=== PATIENT | male | born 1970 | race Caucasian/White ===

== ENCOUNTER 2019-09-17 08:49 | Emergency (ER) | payer OTHER ==
[2019-09-17] MEDS ORDERED: SODIUM CHLORIDE 1,000 ML IV STA (08:54)
[2019-09-17] MEDS ORDERED: KETOROLAC TROMETHAMINE 30 MG/1 ML VIAL IVPUSH ONE (08:54)
--- NOTE | 2019-09-17 08:54 | PDOC ---
Rapid Medical Evaluation Time Seen by Provider: 09/17/19 08:50 Medical Evaluation: Allergies Allergy/AdvReac Type Severity Reaction Status Date / Time No Known Allergies Allergy Unverified 07/10/12 12:04 09/17/19 08:53 CC: sudden onset of left flank pain 45 minutes ago, no other complaints, denies gi/gu hx Exam: vss, appears uncomfortable, + lt cva tenderness Plan: urine, iv, meds, renal spiral ct Discharge Disposition - Diagnosis Flank pain - Referrals - Patient Instructions - Post Discharge Activity
[2019-09-17 08:55] VITALS: BMI 29.9
[2019-09-17] MEDS ORDERED: KETOROLAC TROMETHAMINE 30 MG/1 ML VIAL ONE (09:57)
--- NOTE | 2019-09-17 10:09 | PDOC ---
History of Present Illness - General Chief Complaint: Pain, Acute Stated Complaint: LWR BACK/ABD PAIN Time Seen by Provider: 09/17/19 08:50 History Source: Patient Exam Limitations: Language Barrier - History of Present Illness Initial Comments: 09/17/19 10:31 49y M with no significant PMH presenting to the ER with sudden onset of L flank pain this AM. Pt states pain is in the L flank, radiates to the lower abdomen and also feels pain in the L testicle radiating up to the LLQ. He has not had this pain before. No history of stones. He endorses an episode of nbnb emesis today and nausea. Denies hematuria, dysuria, urinary retention, fever, diarrhea, cough, chest pain, sob. PMD: PMH: none PSH: hip/femur Meds: none Allergies: nkda Past History - Medical History Allergies/Adverse Reactions: Allergies Allergy/AdvReac Type Severity Reaction Status Date / Time No Known Allergies Allergy Unverified 09/17/19 08:54 Home Medications: Ambulatory Orders Ibuprofen [Ibu] 600 mg PO TID #15 tablet 09/17/19 Oxycodone HCl/Acetaminophen [Percocet 5-325 mg Tablet] 1 - 2 tab PO Q6H PRN #12 tab MDD 4 tabs 09/17/19 COPD: No CHF: No - Psycho-Social/Smoking History Smoking History: Never smoked Information on smoking cessation initiated: No - Substance Abuse Hx (Audit-C & DAST Scrn) How often the patient has a drink containing alcohol: Never Score: In Men: 4 or > Positive; In Women: 3 or > Positive: 0 Screen Result (Pos requires Nsg. Audit-10AR): Negative In the last yr the pt used illegal drug/Rx for NonMed reason: No Score: Yes response is considered Positive: 0 Screen Result (Positive result requires Nsg. DAST-10): Negative Review of Systems - Review of Systems Constitutional: No: Symptoms Reported HEENTM: No: Symptoms Reported Respiratory: No: Symptoms reported Cardiac (ROS): No: Symptoms Reported ABD/GI: Yes: See HPI : Yes: See HPI Musculoskeletal: Yes: See HPI Integumentary: No: Symptoms Reported Neurological: No: Symptoms reported *Physical Exam - Vital Signs Last Vital Signs Temp Pulse Resp BP Pulse Ox 97.6 F 70 18 152/77 99 09/17/19 08:53 09/17/19 08:53 09/17/19 08:53 09/17/19 08:53 09/17/19 08:53 - Physical Exam General Appearance: Yes: Nourished, Appropriately Dressed, Moderate Distress HEENT: positive: EOMI, ALBERTINA. negative: Scleral Icterus (R), Scleral Icterus (L) Neck: positive: Trachea midline, Supple. negative: Lymphadenopathy (R), Lymphadenopathy (L) Respiratory/Chest: positive: Lungs Clear, Normal Breath Sounds. negative: Chest Tender, Crackles, Rales, Rhonchi, Stridor, Wheezing Cardiovascular: positive: Regular Rhythm, Regular Rate, S1, S2. negative: Edema, JVD, Murmur Vascular Pulses: Dorsalis-Pedis (R): 2+, Doralis-Pedis (L): 2+ Gastrointestinal/Abdominal: positive: Normal Bowel Sounds, Soft. negative: Tender Male Genitalia: positive: normal genitalia. negative: testicular tenderness, testicular mass, epididymus tender, inguinal hernia Musculoskeletal: positive: CVA Tenderness (L) Extremity: positive: Normal Capillary Refill. 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 vitals" mild tachycardia PE: L cva tenderness, no abdominal tenderness, normal exam. suspect stone. labs and imaging ordered by RME. pt still in pain, given morphine. 3mm LUVJ stone with mild hydro. UA negative for infection. mild leukocytosis. cr function normal. pain controlled. will have pt f/u with urology. given rx for ibuprofen and percocet. discussed results with patient and discussion for discharge instructions. pt understands and agrees to plan. DC 09/17/19 19:06 Discharge - Discharge Information Problems reviewed: Yes Clinical Impression/Diagnosis: Flank pain, Calculus of ureterovesical junction (UVJ) Condition: Improved Disposition: HOME - Admission No - Additional Discharge Information Prescriptions: Ibuprofen [Ibu] 600 mg PO TID #15 tablet Oxycodone HCl/Acetaminophen [Percocet 5-325 mg Tablet] 1 - 2 tab PO Q6H PRN #12 tab MDD 4 tabs PRN Reason: Severe Pain - Follow up/Referral Referrals: Medardo Campbell MD [Staff Physician] - Mickey Bravo MD [Staff Physician] - Marcial Enrique [Non Staff, Medical] - Dre Esposito MD [Staff Physician] - Neftaly-Jayden Ramos MD [Staff Physician] - - Patient Discharge Instructions Patient Printed Discharge Instructions: DI for Kidney Stones Additional Instructions: Te vieron en la gerson de emergencias por dolor en el costado. La tomografa computarizada muestra un clculo renal de 3 milmetros en la unin del urter y la vejiga. Deberas poder pasar esta jerman. Beber mucho lquido. Le he recetado un medicamento llamado ibuprofeno, esto debera ayudar con el dolor y ayudar a pasar el clculo. Tambin se envi devaughn receta para percocet para el dolor irruptivo. Tmelo claudia se le indique. Use el colador provisto cuando orina para recoger la jerman. Las recetas mckeon sido enviadas a [facility] [place] [facility] [place]. Tambin debe hacer un seguimiento con urologa. Se mckeon proporcionado referencias. Regrese a la gerson de emergencias si tiene un empeoramiento del dolor, dificultad para orinar, fiebre o si se desarrolla algn sntoma nuevo o preocupante. Huma You were seen in the ER for flank pain. The CT scan shows a 3 milimeter kidney stone at junction of the ureter and the bladder. You should be able to pass this stone. Drink plenty of fluids. I have prescribed a medication for you called ibuprofen, this should help with the pain and help pass the stone. A prescription for percocet was also sent for breakthrough pain. Take as directed. Use the strainer provided when you urinate to collect the stone. The prescriptions have been sent to [facility], located in this hospital across the [place]. You should also follow up with urology. Referrals have been provided. Come back to the ER if you have worsening pain, have difficulty urinating, have fever or if any new or concerning symptom develops. Thank you Print Language: TAMAZIGHT - Post Discharge Activity
[2019-09-17] MEDS ORDERED: morphine CARPU-JECT 4 MG/1 ML DISP.SYRIN IVPUSH ONE (10:27)
--- NOTE | 2019-09-17 10:31 | PDOC ---
Attending Attestation - Resident Resident Name: Tete Lewis - ED Attending Attestation I have performed the following: I have examined & evaluated the patient, The case was reviewed & discussed with the resident, I agree w/resident's findings & plan, Exceptions are as noted - HPI HPI: 49 yo M no PMH presents with L flank pain since this AM. Abrupt onset, sharp, colicky, severe, radiating to the L testicle. Denies dysuria, urinary retention. - Physicial Exam PE: GENERAL: Awake, alert, and fully oriented, appears in pain HEAD: No signs of trauma EYES: PERRLA, EOMI, sclera anicteric, conjunctiva clear ENT: Auricles normal inspection, hearing grossly normal, nares patent, oropharynx clear without exudates. Moist mucosa NECK: Normal ROM, supple, no lymphadenopathy, JVD, or masses LUNGS: Breath sounds equal, clear to auscultation bilaterally. No wheezes, and no crackles HEART: Regular rate and rhythm, normal S1 and S2, no murmurs, rubs or gallops ABDOMEN: Soft, normoactive bowel sounds. No guarding, no rebound. No masses. +L CVAT EXTREMITIES: Normal range of motion, no edema. No clubbing or cyanosis. No cords, erythema, or tenderness NEUROLOGICAL: Cranial nerves II through XII grossly intact. Normal speech, normal gait. Motor and sensation intact SKIN: Warm, dry, normal turgor, no rashes or lesions noted. : Testicles with normal lie, normal appearance. No induration, no erythema, no masses. - Medical Decision Making Pt with UVJ stone and mild hydro. Will give analgesics, antiemetics, IV fluids. DC if/when improved. Discharge - Discharge Information Problems reviewed: Yes Clinical Impression/Diagnosis: Flank pain, Calculus of ureterovesical junction (UVJ) Condition: Improved Disposition: HOME - Follow up/Referral Referrals: Dre Esposito MD [Staff Physician] - Jayden Villanueva MD [Staff Physician] - Medardo Campbell MD [Staff Physician] - Marcial Enrique [Non Staff, Medical] - Mickey Bravo MD [Staff Physician] - - Patient Discharge Instructions Patient Printed Discharge Instructions: DI for Kidney Stones Additional Instructions: Te vieron en la gerson de emergencias por dolor en el costado. La tomografa computarizada muestra un clculo renal de 3 milmetros en la unin del urter y la vejiga. Deberas poder pasar esta jerman. Beber mucho lquido. Le he recetado un medicamento llamado ibuprofeno, esto debera ayudar con el dolor y ayudar a pasar el clculo. Tmelo claudia se le indique. Use el colador provisto cuando orina para recoger la jerman. Tambin debe hacer un seguimiento con urologa. Se mckeon proporcionado referencias. Regrese a la gerson de emergencias si tiene un empeoramiento del dolor, dificultad para orinar, fiebre o si se desarrolla algn sntoma nuevo o preocupante. Huma Print Language: GEORGIAN - Post Discharge Activity
[2019-09-17] MEDS ORDERED: ONDANSETRON 4 MG/2 ML VIAL IVPB ONE (10:36)
[2019-09-17 10:43] LABS: BASO % 0.2 % (0-2.0); EOS % 0.3 % (0-4.5); HEMATOCRIT 48.2 % (35.4-49); HEMOGLOBIN 16.7 GM/dL (11.7-16.9); LYMPH % 11.1 % (8-40); MCH 30.8 pg (25.7-33.7); MCHC 34.8 g/dl (32.0-35.9); MEAN CELL VOLUME 88.7 fl (80-96); MEAN PLT VOLUME 8.6 fl (7.5-11.1); MONO % 5.5 % (3.8-10.2); NEUT % 82.9 % (42.8-82.8); PLATELET COUNT 233 K/MM3 (134-434); RBC 5.43 M/mm3 (4.00-5.60); RDW 13.5 % (11.9-15.9); WHITE BLOOD COUNT 14.7 K/mm3 (4.0-10.0)
[2019-09-17 10:46] LABS: EPI CELLS 13 /uL (0-25.1); HYALINE CASTS 4 /uL (0-3.1); PH,URINE 7.5 (5.0-8.0); URINE APPEARANCE CLEAR; URINE BACTERIA 7 /uL (0-1359); URINE BILIRUBIN NEGATIVE (NEGATIVE); URINE COLOR YELLOW; URINE GLUCOSE (UA) NEGATIVE (NEGATIVE); URINE KETONE 1+ (NEGATIVE); URINE LEUK ESTERASE NEGATIVE (NEGATIVE); URINE NITRITE NEGATIVE (NEGATIVE); URINE PROTEIN TRACE (NEGATIVE); URINE RBC 89 /uL (0-23.9); URINE WBC 1 /uL (0-25.8)
[2019-09-17] MEDS ORDERED: MORPHINE SULFATE 2 MG/ML VIAL ONE (10:48)
[2019-09-17 11:15] LABS: BILIRUBIN,TOTAL 1.2 mg/dL (0.2-1); BLOOD UREA NITROGEN 18.7 mg/dL (7-18); CALCIUM 9.8 mg/dL (8.5-10.1); CREATININE 1.2 mg/dL (0.55-1.3); POTASSIUM 4.2 mmol/L (3.5-5.1); TOT PROT 8.6 g/dl (6.4-8.2)
[2019-09-17 11:55] VITALS: BP 142/76; PULSE 75; TEMP 98.2
== END 2019-09-17 11:45 | disposition home or self-care (01) ==
LOC: JER 08:49
PROC: 3E033GC Introduction of Other Therapeutic Substance into Peripheral Vein, Percutaneous Approach (ICD-10-PCS; principal; 2019-09-17)
PROC: 3E0337Z Introduction of Electrolytic and Water Balance Substance into Peripheral Vein, Percutaneous Approach (ICD-10-PCS; principal; 2019-09-17)
DX: N13.0 Hydronephrosis with ureteropelvic junction obstruction (principal)
CPT/HCPCS: 36415; 74176-TC; 80053; 81003; 85025; 87086; 96361; 96374; 96375; 99285-25

== ENCOUNTER 2019-09-18 04:05 | Emergency (ER) | payer OTHER ==
[2019-09-18 04:42] VITALS: BMI 26.6
[2019-09-18] MEDS ORDERED: KETOROLAC TROMETHAMINE 30 MG/1 ML VIAL IVPUSH ONE ×2 (04:46→10:36)
[2019-09-18] MEDS ORDERED: SODIUM CHLORIDE 1,000 ML IV STA (04:49)
--- NOTE | 2019-09-18 04:51 | PDOC ---
*Physical Exam - Vital Signs Last Vital Signs Temp Pulse Resp BP Pulse Ox 98.4 F 85 18 153/98 97 09/18/19 04:10 09/18/19 04:10 09/18/19 04:10 09/18/19 04:10 09/18/19 04:10 ED Treatment Course - LABORATORY CBC & Chemistry Diagram: 09/18/19 05:25 09/18/19 05:25 Medical Decision Making - Medical Decision Making 09/18/19 04:51 Patient seen by the advanced practice provider under my supervision. Ancillary testing reviewed as necessary. I agree with plan as outlined by the advanced practice provider. Discharge - Discharge Information Problems reviewed: Yes Clinical Impression/Diagnosis: Calculus of ureterovesical junction (UVJ), Renal colic on left side Condition: Stable Disposition: HOME - Additional Discharge Information Prescriptions: Tamsulosin HCl [Flomax] 0.4 mg PO ONCE #7 cap.er.24h Acetaminophen W/ Codeine #3 [Tylenol # 3 -] 1 tab PO Q4H 7 Days #15 tablet MDD 4 tabs Ondansetron [Zofran *Odt*] 4 mg SL BID #14 od.tablet - Follow up/Referral Referrals: Aylin Dorman [Primary Care Provider] - - Patient Discharge Instructions Additional Instructions: Remain hydrated Follow-up with your doctor within 1 week If you develop worsening symptoms return to ED - Post Discharge Activity
[2019-09-18] MEDS ORDERED: KETOROLAC TROMETHAMINE 30 MG/1 ML VIAL ONE ×2 (05:11→10:43)
--- NOTE | 2019-09-18 05:47 | PDOC ---
History of Present Illness - General Chief Complaint: Pain Stated Complaint: FLANK PAIN Time Seen by Provider: 09/18/19 04:46 History Source: Patient - History of Present Illness Initial Comments: 09/18/19 06:03 49-year-old man complaining of left flank pain reports that the pain is not better with ibuprofen at home. Patient was seen in this ER yesterday and was diagnosed with a 3 mm obstructing stone to the left ureter. Denies fever/chills, nausea, vomiting. Past History - Medical History Allergies/Adverse Reactions: Allergies Allergy/AdvReac Type Severity Reaction Status Date / Time No Known Allergies Allergy Unverified 09/18/19 04:43 Home Medications: Ambulatory Orders Ibuprofen [Ibu] 600 mg PO TID #15 tablet 09/17/19 Oxycodone HCl/Acetaminophen [Percocet 5-325 mg Tablet] 1 - 2 tab PO Q6H PRN #12 tab MDD 4 tabs 09/17/19 Acetaminophen W/ Codeine #3 [Tylenol # 3 -] 1 tab PO Q4H 7 Days #15 tablet MDD 4 tabs 09/18/19 Ondansetron [Zofran *Odt*] 4 mg SL BID #14 od.tablet 09/18/19 Tamsulosin HCl [Flomax] 0.4 mg PO ONCE #7 cap.er.24h 09/18/19 COPD: No CHF: No - Psycho-Social/Smoking History Smoking History: Never smoked Information on smoking cessation initiated: No - Substance Abuse Hx (Audit-C & DAST Scrn) How often the patient has a drink containing alcohol: Never Score: In Men: 4 or > Positive; In Women: 3 or > Positive: 0 Screen Result (Pos requires Nsg. Audit-10AR): Negative In the last yr the pt used illegal drug/Rx for NonMed reason: No Score: Yes response is considered Positive: 0 Screen Result (Positive result requires Nsg. DAST-10): Negative Review of Systems - Review of Systems Able to Perform ROS?: Yes Is the patient limited Kyrgyz proficient: No Constitutional: No: Symptoms Reported, See HPI, Chills, Diaphoresis, Fever, Loss of Appetite, Malaise, Night Sweats, Weakness, Weight Stable, Unintentional Wgt. Loss, Unexplained wgt Loss, Other ABD/GI: No: Symptoms Reported, See HPI, Abdominal Distended, Abd. Pain w/ defecation, Blood Streaked Bowels, Constipated, Diarrhea, Difficulty Swallowing, Nausea, Poor Appetite, Poor Fluid Intake, Rectal Bleeding, Vomiting, Indigestion, Abdominal cramping, Tarry Stools, Other : Yes: Flank Pain. No: Symptoms Reported, See HPI, Burning, Dysuria, Discharge, Frequency, Hematuria, Incontinence, Pain, Urgency, Testicular Mass, Testicular Swelling, Lesions, Testicular Pain, Other *Physical Exam - Vital Signs Last Vital Signs Temp Pulse Resp BP Pulse Ox 98.9 F 74 20 129/86 97 09/18/19 04:50 09/18/19 04:50 09/18/19 04:50 09/18/19 04:50 09/18/19 04:50 - Physical Exam General Appearance: Yes: Appropriately Dressed Respiratory/Chest: positive: Lungs Clear, Normal Breath Sounds Cardiovascular: positive: Regular Rhythm, Regular Rate Gastrointestinal/Abdominal: positive: Normal Bowel Sounds, Soft. negative: Tender Male Genitalia: positive: normal genitalia. negative: testicular tenderness, testicular mass, inguinal hernia Musculoskeletal: positive: CVA Tenderness (L) Extremity: positive: Normal Capillary Refill, Normal Inspection, Normal Range of Motion Integumentary: positive: Normal Color, Dry, Warm Neurologic: positive: Fully Oriented, Alert, Normal Mood/Affect ED Treatment Course - LABORATORY CBC & Chemistry Diagram: 09/18/19 05:25 09/18/19 05:25 - Medications Given in the ED: ED Medications Discontinued Medications Generic Name Dose Route Start Last Admin Trade Name Freq PRN Reason Stop Dose Admin Ketorolac Tromethamine 30 mg 09/18/19 04:46 09/18/19 05:28 Toradol Injection - IVPUSH 09/18/19 04:47 30 mg ONCE ONE Administration ED Progress Note - Progress Note Progress Note: 09/18/19 06:18 A: renal colic P: cbc cmp urine IVF pain control Medical Decision Making - Medical Decision Making 09/18/19 06:41 patient now reports that he has pain shooting to left testicles. left testicle are not swollen, will US 0700: patient signed out to Veronika Clements. pending pain control / scrotal US Discharge - Discharge Information Problems reviewed: Yes Clinical Impression/Diagnosis: Calculus of ureterovesical junction (UVJ), Renal colic on left side Condition: Stable Disposition: HOME - Additional Discharge Information Prescriptions: Tamsulosin HCl [Flomax] 0.4 mg PO ONCE #7 cap.er.24h Acetaminophen W/ Codeine #3 [Tylenol # 3 -] 1 tab PO Q4H 7 Days #15 tablet MDD 4 tabs Ondansetron [Zofran *Odt*] 4 mg SL BID #14 od.tablet - Follow up/Referral Referrals: Aylin Dorman [Primary Care Provider] - - Patient Discharge Instructions Additional Instructions: Remain hydrated Follow-up with your doctor within 1 week If you develop worsening symptoms return to ED - Post Discharge Activity
[2019-09-18] MEDS ORDERED: morphine CARPU-JECT 2 MG/1 ML DISP.SYRIN IVPUSH ONE (05:51)
[2019-09-18 06:01] LABS: BASO % 0.1 % (0-2.0); HEMATOCRIT 45.1 % (35.4-49); HEMOGLOBIN 15.6 GM/dL (11.7-16.9); LYMPH % 8.4 % (8-40); MCH 30.5 pg (25.7-33.7); MCHC 34.7 g/dl (32.0-35.9); MEAN CELL VOLUME 88.1 fl (80-96); MEAN PLT VOLUME 8.1 fl (7.5-11.1); MONO % 5.8 % (3.8-10.2); NEUT % 85.7 % (42.8-82.8); PLATELET COUNT 208 K/MM3 (134-434); RBC 5.12 M/mm3 (4.00-5.60); RDW 13.5 % (11.9-15.9)
[2019-09-18 06:12] LABS: ALBUMIN 4.2 g/dl (3.4-5.0); BILIRUBIN,TOTAL 1.3 mg/dL (0.2-1); BLOOD UREA NITROGEN 13.7 mg/dL (7-18); CALCIUM 8.8 mg/dL (8.5-10.1); CREATININE 1.1 mg/dL (0.55-1.3); POTASSIUM 3.8 mmol/L (3.5-5.1); TOT PROT 7.4 g/dl (6.4-8.2)
[2019-09-18] MEDS ORDERED: MORPHINE SULFATE 2 MG/ML VIAL ONE (06:14)
[2019-09-18 06:37] LABS: EPI CELLS 9 /uL (0-25.1); HYALINE CASTS 1 /uL (0-3.1); PH,URINE 5.5 (5.0-8.0); URINE APPEARANCE CLEAR; URINE BACTERIA 14 /uL (0-1359); URINE BILIRUBIN NEGATIVE (NEGATIVE); URINE COLOR YELLOW; URINE GLUCOSE (UA) NEGATIVE (NEGATIVE); URINE KETONE TRACE (NEGATIVE); URINE LEUK ESTERASE NEGATIVE (NEGATIVE); URINE NITRITE NEGATIVE (NEGATIVE); URINE PROTEIN NEGATIVE (NEGATIVE); URINE RBC 11 /uL (0-23.9); URINE UROBILINOGEN 0.2 mg/dL (0.2-1.0); URINE WBC 5 /uL (0-25.8)
[2019-09-18] MEDS ORDERED: ACETAMINOPHEN 1000 MG/100 ML VIAL (NON FORMULARY) IVPB ONE (06:42)
[2019-09-18] MEDS ORDERED: morphine CARPU-JECT 4 MG/1 ML DISP.SYRIN IVPUSH ONE (06:42)
[2019-09-18] MEDS ORDERED: SODIUM CHLORIDE 1,000 ML IV SCH (06:45)
[2019-09-18] MEDS ORDERED: morphine SULFATE 4 MG/ML VIAL ONE (06:49)
[2019-09-18] MEDS ORDERED: ACETAMINOPHEN INJECTION 100 ML IVPB ONE (06:49)
[2019-09-18 07:17] VITALS: TEMP 98.3
--- NOTE | 2019-09-18 10:41 | PDOC ---
*Physical Exam - Vital Signs Last Vital Signs Temp Pulse Resp BP Pulse Ox 98.3 F 87 22 H 152/84 97 09/18/19 07:14 09/18/19 07:14 09/18/19 07:14 09/18/19 07:14 09/18/19 07:14 ED Treatment Course - LABORATORY CBC & Chemistry Diagram: 09/18/19 05:25 09/18/19 05:25 - ADDITIONAL ORDERS Additional order review: Laboratory Results 09/18/19 09/18/19 06:08 05:25 Sodium 136 Potassium 3.8 Chloride 103 Carbon Dioxide 24 Anion Gap 9 BUN 13.7 Creatinine 1.1 Est GFR (CKD-EPI)AfAm 91.52 Est GFR (CKD-EPI)NonAf 78.96 Random Glucose 120 H Calcium 8.8 Total Bilirubin 1.3 H AST 17 ALT 33 Alkaline Phosphatase 102 Total Protein 7.4 Albumin 4.2 Urine Color Yellow Urine Appearance Clear Urine pH 5.5 D Ur Specific [place] 1.016 Urine Protein Negative Urine Glucose (UA) Negative Urine Ketones Trace H Urine Blood 2+ H Urine Nitrite Negative Urine Bilirubin Negative Urine Urobilinogen 0.2 Ur Leukocyte Esterase Negative Urine WBC (Auto) 5 Urine RBC (Auto) 11 Urine Casts (Auto) 1 U Epithel Cells (Auto) 9 Urine Bacteria (Auto) 14 09/18/19 05:25 RBC 5.12 MCV 88.1 MCHC 34.7 RDW 13.5 MPV 8.1 Neutrophils % 85.7 H Lymphocytes % 8.4 D Monocytes % 5.8 Eosinophils % 0.0 D Basophils % 0.1 - Medications Given in the ED: ED Medications Discontinued Medications Generic Name Dose Route Start Last Admin Trade Name Lester PRN Reason Stop Dose Admin Acetaminophen 1,000 mg 09/18/19 06:42 09/18/19 06:59 Ofirmev Injection - IVPB 09/18/19 06:43 1,000 mg ONCE ONE Administration Sodium Chloride 1,000 mls @ 1,000 mls/hr 09/18/19 04:49 09/18/19 05:29 Normal Saline - IV 09/18/19 05:48 1,000 mls/hr ASDIR STA Administration Ketorolac Tromethamine 30 mg 09/18/19 04:46 09/18/19 05:28 Toradol Injection - IVPUSH 09/18/19 04:47 30 mg ONCE ONE Administration Morphine Sulfate 2 mg 09/18/19 05:51 09/18/19 06:22 Morphine Injection - IVPUSH 09/18/19 05:52 2 mg ONCE ONE Administration Morphine Sulfate 4 mg 09/18/19 06:42 09/18/19 06:59 Morphine Injection - IVPUSH 09/18/19 06:43 4 mg ONCE ONE Administration ED Progress Note - Progress Note Progress Note: 09/18/19 10:37 Case signed out to me by DANIEL Paredes at approximately 7:10 am 49-year-old male with left 3 mm partially obstructed renal stone diagnosed via CTAP yesterday Return for continued pain Patient has received Toradol 30mg, morphine 6 mg Toradol, acetaminophen 1 g IV and 2 L of IV fluids Scrotal ultrasound ordered today without any acute findings Pain has slightly improved with analgesia however patient not comfortable going home at this time Offered another dose of Toradol 30 mg IV and will reassess 09/18/19 12:23 Patient feels better after analgesia Stated he took 1 Percocet last night and felt very nauseous and had one episode of vomiting. Patient does not wish to take Percocet again. Sent prescription for Tylenol 3, Zofran 4 mg and Flomax 0.4 milligrams at night to [facility] pharmacy Advised patient to remain hydrated Patient stable for discharge, agrees with plan Discharge - Discharge Information Problems reviewed: Yes Clinical Impression/Diagnosis: Calculus of ureterovesical junction (UVJ), Renal colic on left side Condition: Stable Disposition: HOME - Admission No - Additional Discharge Information Prescriptions: Tamsulosin HCl [Flomax] 0.4 mg PO ONCE #7 cap.er.24h Acetaminophen W/ Codeine #3 [Tylenol # 3 -] 1 tab PO Q4H 7 Days #15 tablet MDD 4 tabs Ondansetron [Zofran *Odt*] 4 mg SL BID #14 od.tablet - Follow up/Referral Referrals: Aylin Dorman [Primary Care Provider] - - Patient Discharge Instructions Additional Instructions: Remain hydrated Follow-up with your doctor within 1 week If you develop worsening symptoms return to ED - Post Discharge Activity
[2019-09-18] MEDS ORDERED: TAMSULOSIN HCL 0.4 MG CAP PO ONE (11:32)
[2019-09-18] MEDS ORDERED: TAMSULOSIN HCL 0.4 MG CAP ONE (11:39)
[2019-09-18 12:49] VITALS: BP 106/66; PULSE 72
== END 2019-09-18 12:49 | disposition home or self-care (01) ==
LOC: JER 04:05
PROC: 3E0333Z Introduction of Anti-inflammatory into Peripheral Vein, Percutaneous Approach (ICD-10-PCS; principal; 2019-09-18)
PROC: 3E033GC Introduction of Other Therapeutic Substance into Peripheral Vein, Percutaneous Approach (ICD-10-PCS; 2019-09-18)
PROC: 3E0337Z Introduction of Electrolytic and Water Balance Substance into Peripheral Vein, Percutaneous Approach (ICD-10-PCS; 2019-09-18)
DX: N23 Unspecified renal colic (principal); Q62.11 Congenital occlusion of ureteropelvic junction
CPT/HCPCS: 36415; 76870-TC; 80053; 81003; 85025; 96361; 96374; 96375; 96376; 99284-25; J0131